=== PATIENT | male | born 1960 | race Caucasian/White ===

== ENCOUNTER 2022-12-28 09:26 | Outpatient (RCR) | payer OTHER | END 2023-01-07 | LOC: WSOH | DX: S33.5XXD Sprain of ligaments of lumbar spine, subsequent encounter (principal); M54.16 Radiculopathy, lumbar region; K21.9 Gastro-esophageal reflux disease without esophagitis; Y99.0 Civilian activity done for income or pay ==

== ENCOUNTER 2023-02-04 09:45 | Outpatient (RCR) | payer OTHER | END 2023-02-07 | disposition home or self-care (01) | LOC: WSPT | DX: M54.16 Radiculopathy, lumbar region (principal); S33.5XXD Sprain of ligaments of lumbar spine, subsequent encounter; X58.XXXD Exposure to other specified factors, subsequent encounter ==

== ENCOUNTER 2023-02-16 10:40 | Outpatient (CLI) | payer OTHER ==
[~2023-02-16] VITALS: Ht 175.3 cm; Wt 118.3 kg
[2023-02-16] MEDS ORDERED: MOBIC15 MG PO (10:50)
[2023-02-16] MEDS ORDERED: PROTONIX 40MG T40 MG PO (10:51)
[2023-02-16] MEDS ORDERED: SINGULAIR 110 MG/TAB PO (10:52)
[2023-02-16] MEDS ORDERED: MULTIPLE VITAMI1 CAP PO (10:52)
[2023-02-16 11:02] VITALS: BP 132/79; PULSE 61; TEMP 98
[2023-02-16] MEDS ORDERED: Iohexol 180 - 10 ML VIAL IV ONE (11:42)
[2023-02-16 12:00] VITALS: BP 135/79; PULSE 58; PULSE 60
[2023-02-16 12:15] VITALS: BP 142/82; PULSE 58
[2023-02-16 12:30] VITALS: BP 129/82; PULSE 60
[2023-02-16 12:45] VITALS: BP 128/77; PULSE 58
--- NOTE | 2023-02-16 12:57 | NUR ---
pt tolerated recovery period well. pt remained on back for one hour following procedure, vs remained within normal limits, and dressing on back remained clean dry and intact upon discharge. pt assisted to main lobby via wheelchair and was accompanied by .
== END 2023-02-16 13:01 | disposition home or self-care (01) ==
LOC: COL.RAD 10:40
DX: M48.061 Spinal stenosis, lumbar region without neurogenic claudication (principal); M48.07 Spinal stenosis, lumbosacral region; M47.27 Other spondylosis with radiculopathy, lumbosacral region; S33.5XXD Sprain of ligaments of lumbar spine, subsequent encounter
CPT/HCPCS: Q9965